=== PATIENT | female | born 1950 | race Caucasian/White ===

== ENCOUNTER 2022-07-19 10:14 | Outpatient (CLI) | payer MEDICARE, BC, SELFPAY | END 2022-07-19 10:15 | disposition home or self-care (01) | LOC: NFLDREF 07-21 10:39 | PROVIDERS: PCP Internal Medicine; Referring Provider Internal Medicine; Visit Provider Internal Medicine | DX: H81.03 Meniere's disease, bilateral (principal); E78.5 Hyperlipidemia, unspecified | CPT/HCPCS: 80048; 80061 ==

== ENCOUNTER 2022-09-07 12:44 | Outpatient (CLI) | payer MEDICARE, BC, SELFPAY ==
--- NOTE | 2022-09-07 13:00 | CRLHL7_ITS ---
For Patients: As a result of the Century Cures Act, medical imaging exams and procedure reports are released immediately into your electronic medical record. You may view this report before your referring provider. If you have questions, please contact your health care provider. BILATERAL SCREENING MAMMOGRAM WITH COMPUTER-AIDED DETECTION AND TOMOSYNTHESIS TECHNIQUE: CC and MLO views were obtained. These mammographic images have been obtained using full-field digital technique. These mammographic images were interpreted with the benefit of computer-aided detection. Breast Tomosynthesis was used in this interpretation. COMPARISON FILM: 08/21/20. FINDINGS: There are scattered areas of fibroglandular density IMPRESSION: There is no radiographic evidence for malignancy. ASSESSMENT: BI-RADS Category 1: Negative RECOMMENDATION: Routine screening mammogram in 1 year. A lay language report of this examination will be provided to the patient. Sandeep Bradshaw M.D. Diagnostic Radiologist [email or web address] RACHEL/[email or web address] Transcribed: 1:52 p.[email or web address] pope/Dictated by: Sandeep Bradshaw MD @ 09/08/2022 11:16:00 AM (Electronically Signed)
== END 2022-09-07 12:45 | disposition home or self-care (01) ==
LOC: MAMMO 12:45
PROVIDERS: PCP Internal Medicine; Visit Provider Internal Medicine
DX: Z12.31 Encounter for screening mammogram for malignant neoplasm of breast (principal)
CPT/HCPCS: 77063; 77067

== ENCOUNTER 2023-08-25 09:17 | Outpatient (CLI) | payer MEDICARE, BC, SELFPAY ==
--- OUTSIDE RECORDS SUMMARY | 2023-08-25 09:26 | XMS_ITS | Clinical Summary ---
Author Name Unknown Organization [facility] Address [place], [place] [address] Care Team Providers Care Executive Talent Acquisition Consultant Name Role Phone Unavailable Primary Care Provider Unavailabl e Allergies No known active allergies Medications Medication Sig Dispensed Refills Start Date End Date Status CALCIUM + VITAMIN D 600 MG-200 UNIT TAB Once daily 0 09/20/2006 Activ e aspirin (ECOTRIN) 81 mg enteric coated tablet Take 1 tablet by mouth once daily with a meal. 0 01/28/2014 Active multivitamin (MVI) tablet Take 1 tablet by mouth once daily. 0 01/28/2014 Active cyanocobalamin (VITAMIN B-12) 1,[address] under the tongue once daily. 0 01/28/2014 Active doxylamine (UNISOM, DOXYLAMINE,) 25 mg tablet Take 0.5 tablets by mouth at bedtime if needed for Sleep. 0 01/28/2014 Active Biotin 10,000 mcg capsule Take 1 Capsule (10,000 mcg) by mouth. 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 To eczema areas as needed. 45 g 2 03/25/2022 Active triamterene-hydrochlo rothiazide, 37.5-25 mg, (DYAZIDE) 37.5-25 mg capsuleIndications:Me niere's disease, unspecified laterality TAKE 1 CAPSULE EVERY MORNING 90 Capsule 04/26/2022 Active atorvastatin (LIPITOR) 10 mg tabletIndications:Hyp erlipidemia, unspecified hyperlipidemia type Take 1 Tablet (10 mg) by mouth at bedtime. 90 Tablet 1 06/02/2022 Active Active Problems Problem Noted Date Diagnosed Date Hyperlipidemia 10/23/2021 Osteopenia of multiple sites 11/17/2018 Overview: Bone density November 2018 stable. Recheck 3-5 years. Meniere's disease of both ears 02/10/2015 Immunizations Name Administration Dates Next Due COVID-19 vaccine ([employer] NTech 30mcg/0.3mL) PF, MDV 07/12/2020,06/21/2020 Influenza, High-dose Inactivated 019,02/02/2018,02/22/2017,2015,02/10/2015 Influenza, High-dose Quadriv alent Inactivated 02/06/2021 Pneumococcal Poly,23-Valent (Pneumovax) 04/28/2016 Pneumococcal conj 13-Valent (Prevnar 13) 02/10/2015 Td (Age >=7 Years) 01/28/2005 Td, Preservative Free (age > = 7 Years) 01/28/2005 Tdap 04/14/2016 Zoster (Zostavax-ZVL, live) 01/07/2015 Family History Medical History Relation Name Comments Kidney cancer Daughter Cancer Father lung Stroke Mother Cancer-breast Paternal Aunt Anesthesia Malignant Hyperthermia No Family History Blood Disease No Family History Relation Name Status Comments Daughter Alive Father Mother Paternal Aunt Social History Tobacco Use Types Packs/Day Years Used Date Smoking Tobacco: Never Smokeless Tobacco: Never Tobacco Cessation:Counseling Given: Yes Alcohol Use Standard Drinks/Week Comments Yes 4 (1 standard drink = 0.6 oz pur e alcohol) PHQ-2 Answer Date Recorded PHQ-2 TOTAL SCORE 0 10/20/2021 Social Connections Answer Date Recorded Frequency of Communication with Friends and Fami ly Not on file 10/21/2022 Financial Resource Strain Answer Date R ecorded Difficulty of Paying Living Expenses 3 10/20/2021 Difficulty of Paying Living Expenses Not on file 10/20/2021 Food Insecurity Answer Date Recorded Worried About Running Out of Food in the Last Ye ar 1 10/20/2021 Transportation Needs Answer Date Record ed Lack of Transportation (Medical) 1 10/20/2021 Housing Stability Answer Date Recorded Unable to Pay for Housing in the Last Year 1 10/20/2021 Sex and Gender Information Value Date Recorded Sex Assigned at Not on file Gender Identity Not on file Sexual Orientation Not on file Obstetrics History Last Filed Vital Signs Vital Sign Reading Time Taken Comments Blood Pressure 132/84 01/04/2022 11:44 AM CDT Pulse 81 01/04/2022 11:44 AM CDT Temperature 36.5 ??C (97.7 ??F) 03/16/2017 1:55 PM CS T Respiratory Rate 20 08/28/2020 11:21 AM CDT Oxygen Saturation 96% 10/20/2021 10:10 AM CDT Inhaled Oxygen Concentration - - Weight 55.8 kg (123 lb) 10/20/2021 10:10 AM CDT Height 159.5 cm (5' 2.8) 10/20/2021 10:10 AM CD T Body Mass Index 21.93 10/20/2021 10:10 AM CDT Plan of Treatment Upcoming Encounters Date Type Department Care Team (Late st Contact Info) Description 10/06/2023 2:30 PM CDT Office Visit [address] [phone] Bennie Cain MD [facility] [address] [place] [address] Health Maintenance Due Date Last Done Comments Zoster (shingles) series for age 50+ (2 of 3) 03/04/2015 01/07/2015 Medicare Wellness for age 65+ 11/02/2019, 04/28/2016, 02/10/2015 Mammogram for age 45-75 08/21/2021 08/22/19, 11/06/2018, 04/28/2016, Additional history exists Fecal testing non-DNA (FIT,FOBT,iFOBT) for age 45-75 04/06/2022 04/06/2021, 02/07/2020, 03/18/2018 (Completed outside of [facility]), Additional history exists BMI (ht and wt on same day) for age 18+ 10/20/2022 10/20/2021, 11/19/2020, 11/01/2018, Additional history exists Depression screening for age 12+ 10/20/2022 10/20/2021, 11/19/2020, 11/01/2018, Additional history exists COVID-19 vaccine series ( season) 2023 02/19/2021, 07/12/2020, 06/21/2020 Influenza for age 65+ 01/08/2024 02/06/2021 , 02/26/2019, 02/02/2018, Additional history exists Tetanus booster 04/14/2026 04/14/2016, 03/10 (Completed outside of [facility] 01/28/2005, Additional history exists Lipids for age 45-75 10/20/2026 10/20/2021, 03/18/2021, 11/01/2018, Additional history exists Tdap Completed 04/14/2016, 03/10 (Completed outside of [facility] Pneumococcal series for age 65+ Completed 6, 02/10/2015 DEXA/DXA scan for age 65+ Completed 2018, 02/11/2015, 09/09/2006 Hepatitis C screening for ag e 18-79 Completed 10/20/2021 Procedures Procedure Name Priority Date/Time Associated Diagnosis Comments ANTI HCV Routine 10/20/2021 10:49 AM CDT Need for hepatitis C screening test LIPID PANEL W REFLEX MEASURED LDL Routine 10/20/2021 10:49 AM CDT Hyperlipidemia, unspecified hyperlipidemia type OCCULT BLOOD IFOBT STOOL Routine 04/06/2021 9:23 AM [facility]DOOR [employer] [employer]ES Screening for colorectal cancer XR MAMMO EMANI BILAT SCREEN Routine 08/21/2020 10:29 AM CDT Visit for screening mammogram XR DXA BONE DENSITY 2 SITES AXIAL Routine 11/06/2018 2:13 PM CDT Asymptomatic postmenopausal state from Last 3 Months or Most Recently Relevant to Health Maintenance Results * (ABNORMAL) LIPID PANEL W REFLEX MEASURED LDL (10/20/2021 10:49 AM CDT) CHOLESTEROL,TOTAL 240(H) 100 - 199 mg/dL 10/20/2021 5:47 PM CDT [facility] TRIGLYCERIDES 147 <150 mg/dL 10/20/2021 5:47 PM CDT [facility] HDL CHOLESTEROL 62 >40 mg/dL 5:47 PM CDT [facility] NON-HDL CHOLESTEROL 178(H) <145 mg/dl 10/20/2021 5:47 PM CDT [facility] CHOL/HDL RATIO 3.87 <4.50 10/20/2021 5:47 PM CDT [facility] LDL CHOLESTEROL 149(H) <=130 mg/dL 10/20/2021 5:47 PM CDT [facility] VLDL CHOLESTEROL 29 <=30 mg/dL 10/20/2021 5:47 PM CDT [facility] PROVIDER ORDERED STATUS RANDOM 10/20/2021 5:47 PM CDT [facility] Blood BLOOD SPECIMEN / Unknown Venipuncture / Unknown 10/20/2021 10:49 AM CDT 10/20/2021 10:50 AM CDT [facility] CHEMISTRY [facility] [address] [place] [address], [place] * ANTI HCV (10/20/2021 10:49 AM CDT) HEPATITIS C ANTIBODY Non-React babar Non-React babar 10/20/2021 6:05 PM CDT [facility] Comment:Antibodies to HCV no t detected; does not exclude the possibility of exposure to HCV. Blood BLOOD SPECIMEN / Unknown Venipuncture / Unknown 10/20/2021 10:49 AM CDT 10/20/2021 10:50 AM CDT Lala VALENCIA SEND OUTS [facility] [address] [place] [address], [place] * OCCULT BLOOD IFOBT STOOL (04/06/2021 9:23 AM [facility] [employer]) STOOL BLOOD ,IFOBT Negative Negative 04/14/2021 9:19 AM [employer] [employer] [facility] Stool STOOL SPECIMEN / Unknown Non-Blood / Unknown 04/06/2021 9:23 AM [facility] [employer] 04/13/2021 9:23 AM [employer] [facility] [address] [place] [address], * XR MAMMO EMANI BILAT SCREEN (08/21/2020 10:29 AM CDT) Anatomical Region Laterality Modality BREASTS, Breast Left, Breast Right Bilateral Mammography Impressions 08/22/2020 4:02 PM CDT ??There is no radiographic evidence for malignancy. ??Recommend annual mammograms. MAMMOGRAM ASSESSMENT: ??ACR 1 Negative PATIENTS: You will also receive a letter with your examination results in an easy to read format. ??If you have questions about your results, please contact your referring provider. Narrative 08/22/2020 4:02 PM CDT XR MAMMO EMANI BILAT SCREEN [[id number]] CLINICAL HISTORY: ??This is an asymptomatic 69 y.o. patient. INDICATION FOR EXAM: Mammogram Screening. TECHNIQUE: CC & MLO views were obtained. ??This digital study was evaluated with the assistance of Computer-Aided Detection. Breast Tomosynthesis was used in interpretation. COMPARISON FILM: Yes 11/06/18 [facility] FINDINGS: ??The breasts are heterogeneously dense, which may obscure small masses. There are no dominant masses, suspicious micro calcifications or areas of architectural distortion. Lala VALENCIA MAMMO * (ABNORMAL) XR DXA BONE DENSITY 2 SITES AXIAL (11/06/2018 2:13 PM CDT) Anatomical Region Laterality Modality Spine, HIPS, HIPL, HIPR Other Narrative 11/15/2018 2:38 PM CDT RAD SCAN [facility]ala [facility] DEXA from Last 3 Months or Most Recently Relevant to Health Maintenance Guarantor Name Account Type Relation to Patient Date of Phone Billing Address GoranDanyelle Personal/Family Self 1950 [address] [place] [address]
== END 2023-08-25 09:18 | disposition home or self-care (01) ==
PROVIDERS: PCP Internal Medicine; Visit Provider Internal Medicine
DX: M85.88 Other specified disorders of bone density and structure, other site (principal); M81.0 Age-related osteoporosis without current pathological fracture; E78.2 Mixed hyperlipidemia; Z79.899 Other long term (current) drug therapy
CPT/HCPCS: 80048; 80061; 82306

== ENCOUNTER 2023-09-28 13:09 | Outpatient (CLI) | payer MEDICARE, BC, SELFPAY ==
--- OUTSIDE RECORDS SUMMARY | 2023-09-28 13:12 | XMS_ITS | Clinical Summary ---
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 Apply topically to affected area(s) [...] Name Administration Dates Next Due COVID-19 vaccine ([employer] NTech 30mcg/0.3mL) PF, MDV 07/12/2020,06/21/2020 Influenza, High-dose [...] Description 10/06/2023 2:30 PM CDT Office Visit [address] [phone] Hunter Cain-Bronson Stone MD [facility] [facility] [address] [place] [address] Health Maintenance Due Date Last Done Comments Zoster (shingles) series for age 50+ (2 of 3) 03/04/2015 01/07/2015 Medicare Wellness for age 65+ 11/02/2019, 04/28/2016, 02/10/2015 Mammogram for age 45-75 08/21/2021 08/22/19, 11/06/2018, 04/28/2016, Additional history exists Fecal testing non-DNA (FIT,FOBT,iFOBT) for age 45-75 04/06/2022 04/06/2021, 02/07/2020, 03/18/2018 ([facility] Additional history exists BMI (ht and wt on same day) for age 18+ 10/20/2022 10/20/2021, 11/19/2020, 11/01/2018, Additional history exists Depression screening for age 12+ 10/20/2022 10/20/2021, 11/19/2020, 11/01/2018, Additional history exists COVID-19 vaccine series ( season) 2023 02/19/2021, 07/12/2020, 06/21/2020 Influenza for age 65+ 01/08/2024 02/06/2021 , 02/26/2019, 02/02/2018, Additional history exists Tetanus booster 04/14/2026 04/14/2016, 03/10 (Completed outside of [facility]), 01/28/2005, Additional history exists Lipids for age 45-75 10/20/2026 10/20/2021, 03/18/2021, 11/01/2018, Additional history exists Tdap Completed 04/14/2016, 03/10 (Completed outside of [facility]) Pneumococcal series for age 65+ Completed 6, [...] BLOOD IFOBT STOOL Routine 04/06/2021 9:23 AM CAMPUS ADMINISTRATOR Screening for colorectal cancer XR MAMMO EMANI [...] - 199 mg/dL 10/20/2021 5:[address] [facility] TRIGLYCERIDES 147 <150 mg/dL 10/20/2021 5:[address] [facility] HDL CHOLESTEROL 62 >40 mg/dL 5:[address] [facility] NON-HDL CHOLESTEROL 178(H) <145 mg/dl 10/20/2021 5:[address] [facility] CHOL/HDL RATIO 3.87 <4.50 10/20/2021 5:[address] [facility] LDL CHOLESTEROL 149(H) <=130 mg/dL 10/20/2021 5:[address] [facility] VLDL CHOLESTEROL 29 <=30 mg/dL 10/20/2021 5:[address] [facility] PROVIDER ORDERED STATUS RANDOM 10/20/2021 5:[address] [facility] Blood BLOOD SPECIMEN / Unknown Venipuncture / Unknown 10/20/2021 10:49 AM CDT 10/20/2021 10:50 AM CDT Lala [facility] CHEMISTRY Performing Organization Address City/[facility]/ZIP Co de Phone Number [facility] [address] [place] [phone], [place] * ANTI HCV (10/20/2021 10:49 AM CDT) HEPATITIS C ANTIBODY Non-React babar Non-React babar 10/20/2021 6:[address] [facility] Comment:Antibodies to HCV no t detected; does not exclude the possibility of exposure to HCV. Blood BLOOD SPECIMEN / Unknown Venipuncture / Unknown 10/20/2021 10:49 AM CDT 10/20/2021 10:50 AM CDT Lala VALENCIA SEND OUTS [facility] [address] [place] [address], [place] * OCCULT BLOOD IFOBT STOOL (04/06/2021 9:23 AM CAMPUS ADMINISTRATOR) STOOL BLOOD ,IFOBT Negative Negative 04/14/2021 9:19 AM CAMPUS ADMINISTRATOR [facility] Stool STOOL SPECIMEN / Unknown Non-Blood / Unknown 04/06/2021 9:23 AM CAMPUS ADMINISTRATOR 04/13/2021 9:23 AM CAMPUS ADMINISTRATOR [facility] [address] [place] [address], * XR MAMMO EMANI BILAT SCREEN (08/21/2020 [...] PM CDT XR MAMMO EMANI BILAT SCREEN [[id number]] CLINICAL HISTORY: ??This is an asymptomatic 69 y.o. patient. INDICATION FOR EXAM: Mammogram Screening. TECHNIQUE: CC & MLO views were obtained. ??This digital study was evaluated with the assistance of Computer-Aided Detection. Breast Tomosynthesis was used in interpretation. COMPARISON FILM: Yes 11/06/18 [facility]28/[facility] FINDINGS: ??The breasts are heterogeneously [...] to Patient Date of Phone Billing Address Danyelle Zimmer Personal/Family Self 1950 [address] [place] [address]
--- NOTE | 2023-09-28 13:30 | XR_ITS ---
Patient: JERICA MICHAEL Facility:?[facility] Patient ID:?[id number] Site Patient ID:?[id number]. Site :?1950 Study:?DEXA-Bone Density -09/28/2023 1:51:56 PM Ordering Physician:SHABNAM Final Report: DXA BONE MINERAL DENSITY STUDY Reason for exam: Osteoporosis. Current height (in): 63. Weight (lb): 127. Menopause age: 55. Ethnicity: White. 1. Have you had a previous hip or vertebral fracture? No. 2. Have you had any fractures during your adult life which did not result from significant trauma (e.g., auto accident)? No. 3. Did either of your parents have a hip fracture? No. 4. Do you smoke? No. 5. Have you ever taken Glucocorticoids? No. 6. Do you have rheumatoid arthritis? No. 7. Do you have secondary osteoporosis? No. 8. Do you drink 3 or more alcoholic drinks per day? No. 9. Are you being treated for osteoporosis? Yes. 10. Have you ever taken any of the following medications: Actonel, Evista, Fosamax, Miacalcin, Reclast, Boniva, Forteo, HRT (i.e. estrogen/hormone therapy), Protelos, Prolia, Vitamin D, Calcium, other ? please specify. ANSWER: Yes, vitamin D and calcium. 11. Do you have any of the following medical conditions: Anorexia or bulimia, asthma or emphysema, end stage renal disease, hyperparathyroidism, any seizure disorders, cancer, inflammatory bowel diseases, hysterectomy, other ? please specify. ANSWER: No. 12. What was your maximum height (inches)? 63. 13. Do you perform weight bearing exercise regularly? Yes. 14. Do you regularly consume dairy products? Yes. 15. Do you drink caffeinated beverages? Yes. 16. At what age did your period start? 10. 17. Are you premenopausal? No. 18. How many full term pregnancies have you had? 3. 19. Have you ever missed your period for more than 6 months in a row (not including or menopause)? No. TECHNIQUE: Bone mineral density study was performed using the [employer]. FINDINGS: The results of the study expressed as bone mineral density (BMD) are as follows: Lumbar spine L1 to L4: BMD: 0.765 g/cm2. T-score: -2.6. Z-score: -0.2. Neck Left: BMD: 0.567 g/cm2. T-score: -2.5. Z-score: -0.5. Right: BMD: 0.538 g/cm2. T-score: -2.8. Z-score: -0.7. Total Left: BMD: 0.666 g/cm2. T-score: -2.3. Z-score: -0.5. Right: BMD: 0.675 g/cm2. T-score: -2.2. Z-score: -0.4. IMPRESSION: Osteoporosis. Sandeep Bradshaw M.D. Diagnostic Radiologist [email or web address] RACHEL/sp R& Transcribed: 8:00 p.m. SP/Dictated by: Sandeep Bradshaw MD @ 09/29/2023 9:19:00 AM Signed by:?Sandeep Bradshaw MD @09/30/2023 5:25:04 AM (Electronic Signature)
== END 2023-09-28 13:10 | disposition home or self-care (01) ==
LOC: RAD 13:10
PROVIDERS: PCP Internal Medicine; Visit Provider Internal Medicine
DX: M81.0 Age-related osteoporosis without current pathological fracture (principal)
CPT/HCPCS: 77080

== ENCOUNTER 2024-12-25 08:40 | Outpatient (CLI) | payer MEDICARE, BC, SELFPAY | END 2024-12-25 08:41 | disposition home or self-care (01) | LOC: NFLDREF 01-01 02:16 | PROVIDERS: PCP Internal Medicine; Referring Provider Internal Medicine; Visit Provider Internal Medicine | DX: E78.5 Hyperlipidemia, unspecified (principal); I10 Essential (primary) hypertension; M81.0 Age-related osteoporosis without current pathological fracture | CPT/HCPCS: 80048; 80061; 82306 ==

== ENCOUNTER 2025-01-29 09:23 | Outpatient (CLI) | payer MEDICARE, BC, SELFPAY ==
--- NOTE | 2025-01-29 09:45 | CRLHL7_ITS ---
For Patients: As a result of the Century Cures Act, medical imaging exams and procedure reports are released immediately into your electronic medical record. You may view this report before your referring provider. If you have questions, please contact your health care provider. INDICATION: BILATERAL SCREENING MAMMOGRAM, ASYMPTOMATIC 74 Y/O FEMALE COMPARISON: 09/07/2022, 08/21/2020 TECHNIQUE: Digital mammogram in CC and MLO projections including computer-aided detection (CAD) and tomosynthesis. BREAST COMPOSITION: There are scattered areas of fibroglandular density. FINDINGS: No suspicious findings. ASSESSMENT: BI-RADS 1 Negative RECOMMENDATION: Annual screening mammogram. A lay language report of this examination will be provided to the patient. Dictated by: Lori Dave MD @ 01/30/2025 10:07:31 (Electronically Signed)
== END 2025-01-29 09:24 | disposition home or self-care (01) ==
LOC: MAMMO 09:23
PROVIDERS: PCP Internal Medicine; Visit Provider Internal Medicine
DX: Z12.31 Encounter for screening mammogram for malignant neoplasm of breast (principal)
CPT/HCPCS: 77063; 77067